=== PATIENT | male | born 1990 | race Caucasian/White ===

== ENCOUNTER 2024-10-22 12:25 | Emergency (ER) | payer BC, SELFPAY ==
--- OUTSIDE RECORDS SUMMARY | 2024-10-22 12:27 | XMS_ITS | Continuity of Care Document ---
Author Organization [facility] Address [address] [place] [address] Phone Care Team Providers Care Outside Installer Apprentice Name Role Phone Zafar Tran MD Unavailable Unavailable Procedures Procedure Date ELECTROCARDIOGRAM REPORT Advance Directives Directive Yes / No Effective Date File Name No Information Encounters Encounter Description Practice Location Reason(s) For Visit Diagnoses Date Provider Providers Copied on Encounter [facility], [address] [place] [address], [facility], tel:[phone] [facility] No Information Marc Puente. [address] [place] [address], . tel:[phone] Referring Provider: Rowena Coleman, [address], [place], [facility]. tel:[phone] Family History Family Member Type Diagnosis Age At Onset No Information Payers Payer name Insurance type Covered republican ID Authoraca tijensen(s) [facility] [id number] Social History Type Description Quantity Date Captured Comments Sex Male Smoking Status No Information Chief Complaint And Reason For Visit No Information Reason For Referral Reason For Referral No Information History Of Present Illness Encounter Date Complaint History Of Prese nt Illness No Information Functional Status Date Functional Assessmen t No Information Instructions Date Instruction Additional Infor mation No Information Assessments Type Assessment Date No Information Patient Care Teams Name Effective Dates (start - stop) Status Members No Information
[2024-10-22 12:37] VITALS: BP 172/97; PULSE 117; RESP 13; O2SAT 97
--- OUTSIDE RECORDS SUMMARY | 2024-10-22 12:57 | XMS_ITS | Continuity of Care Document ---
Author Organization [facility] Address [address] [place] [address] Phone Care Team Providers Care Cold Rolling Machine Setter Name Role Phone Zafar Tran MD Unavailable Unavailable Procedures Procedure Date ELECTROCARDIOGRAM REPORT Advance Directives Directive Yes / No Effective Date File Name No Information Encounters Encounter Description Practice Location Reason(s) For Visit Diagnoses Date Provider Providers Copied on Encounter [facility], [address] [place] [address], [place], tel:[phone] [facility] No Information Marc Puente. [address] [place] [address], . tel:[phone] Referring Provider: Rowena Coleman, [address], [place], [place]. tel:[phone] Family History Family Member Type Diagnosis Age At Onset No Information Payers Payer name Insurance type Covered green party ID Authoraca tijensen(s) [facility] [id number] Social History Type Description Quantity Date Captured [...]
[2024-10-22 14:00] LABS: Hematocrit 44.4 % (42.0-52.0); Hemoglobin 15.4 g/dL (14.0-18.0); Immature Granulocyte Percent A 0.2 % (0-0.5); Lymphocytes Absolute Auto 1.83 K/mm3 (0.9-3.2); Mean Corpuscular HGB Conc 34.7 g/dl (32-36); Mean Corpuscular Hemoglobin 30.3 pg (26-34); Mean Corpuscular Volume 87.4 fl (80-100); Nucleated Red Blood Cells Absolute Auto 0.000 K/mm3 (0.0-0.012); Nucleated Red Blood Cells Perc 0.0 % (0.0-0.2); Platelet Count Result 167 k/mm3 (150-375); Red Blood Count 5.08 M/mm3 (4.6-6.20); White Blood Count 5.3 K/mm3 (4.5-10.0)
[2024-10-22 14:17] LABS: Alanine Aminotransferase 160 U/L (6-50); Albumin Level 5.0 g/dL (3.5-5.1); Alkaline Phosphatase 70 U/L (38-126); Anion Gap 15 mmol/L (4-12); Aspartate Amino Transferase 107 U/L (17-59); Bilirubin,Total 0.9 mg/dL (0.2-1.3); Blood Urea Nitrogen 10 mg/dL (9-20); Calcium 9.4 mg/dL (8.4-10.2); Carbon Dioxide 24 mmol/L (22-30); Chloride 101 mmol/L (98-107); Estimated Glomerular Filt Rate > 60; Glucose 117 mg/dL (65-110); Potassium 3.8 mmol/L (3.4-5.0); Sodium 140 mmol/L (137-145); Total Protein 8.0 g/dL (6.3-8.2)
[2024-10-22] MEDS: SODIUM CHLORIDE 0.9% IV 1,000 ML 999 ML IV CONT (14:22)
[2024-10-22] MEDS: diazePAM INJ (*CRX) 10 MG/2 ML SYRINGE 5 MG IV PUSH (14:22)
--- NOTE | 2024-10-22 14:53 | ED.GENADULT ---
HPI - General Adult General Chief complaint: Alcohol Stated complaint: etoh withdrawls Time Seen by Provider: 10/22/24 12:50 History of Present Illness HPI narrative: Patient is a 34-year-old male who presents ER with concerns for alcohol withdrawal. Reports when he stops drinking he gets anxious and sweaty has to drink more alcohol to make his symptoms go away. He has been able to stop prolonged periods in the past. Currently drinking 1-2 balls of hard liquor during day. Reports he also has symptoms when he runs out of his Vyvanse and begins have similar-type symptoms and will have to take a drink to curb the discomfort and anxiousness. Has not spoken his PCP about this. He does report that he has been a a in the past which was somewhat helpful but a bit overwhelming. He has been open with his about his issues and she brought him here to get help. No history of alcohol withdrawal seizure. Related Data Allergies Allergy/AdvReac Type Severity Reaction Status Date / Time No Known Allergies Allergy Verified 06/19/24 11:21 Review of Systems Review of Systems: All systems reviewed & are unremarkable except as noted in HPI and below Constitutional: Constitutional: Reports no additional constitutional complaints Cardiovascular: Cardiovascular: Reports no additional cardiovascular complaints Respiratory: Respiratory: Reports no additional respiratory complaints Gastrointestinal: Gastrointestinal: Reports no additional gastrointestinal complaints Neurologic: Reports system reviewed and no additional complaints, except as documented Psychiatric: Psychiatric: Reports no additional psychiatric complaints PMFSH Past Medical History Medical History (Updated 10/22/24 @ 15:09 by Nicola Andrade MD) Type 1 diabetes ADHD Social History Social History Smoking status: Never smoker Exam Narrative: GENERAL: Well-appearing, well-nourished, and in no acute distress. HEAD: Normocephalic, atraumatic. EYES: PERRL and EOMI. ENT: Mucous membranes moist. CHEST: Clear to auscultation. No respiratory distress. HEART: Tachycardic and regular. Normal peripheral pulses. ABDOMEN: Soft, nontender, nondistended. EXTREMITIES: Normal range of motion. No edema. SKIN: Warm, dry, no rash. NEURO: Alert and oriented x3. PSYCH: Normal mood and affect. Course Course Emergency Course: Patient resting comfortably. Received some Valium. The patient reassurance. Suspect he could have success in quitting alcohol as he seems motivated and has good insight into his issues. Vital Signs Vital signs: Vital Signs Pulse Rate 117 H 10/22/24 12:37 Respiratory Rate 13 10/22/24 12:37 Blood Pressure 172/97 H 10/22/24 12:37 Pulse Oximetry 97 10/22/24 12:37 Oxygen Delivery Room Air 10/22/24 12:37 Pulse Rate 117 H 10/22/24 12:37 Respiratory Rate 13 10/22/24 12:37 Blood Pressure 172/97 H 10/22/24 12:37 Pulse Oximetry 97 10/22/24 12:37 Oxygen Delivery Room Air 10/22/24 12:37 Medical Decision Making Vital Signs Vital Signs: Vital Signs Pulse Rate 117 H 10/22/24 12:37 Respiratory Rate 13 10/22/24 12:37 Blood Pressure 172/97 H 10/22/24 12:37 Pulse Oximetry 97 10/22/24 12:37 Oxygen Delivery Room Air 10/22/24 12:37 Pulse Rate 117 H 10/22/24 12:37 Respiratory Rate 13 10/22/24 12:37 Blood Pressure 172/97 H 10/22/24 12:37 Pulse Oximetry 97 10/22/24 12:37 Oxygen Delivery Room Air 10/22/24 12:37 Lab Data 10/22/24 13:51 10/22/24 13:51 Labs: Lab Results 10/22/24 Range/Units 13:51 WBC 5.3 (4.5-10.0) K/mm3 RBC 5.08 (4.6-6.20) M/mm3 Hgb 15.4 (14.0-18.0) g/dL Hct 44.4 (42.0-52.0) % MCV 87.4 (80-100) fl MCH 30.3 (26-34) pg MCHC 34.7 (32-36) g/dl RDW 12.9 (11.5-14.5) % Plt Count 167 (150-375) k/mm3 MPV 9.3 (7.4-10.4) fl Immature Gran % (Auto) 0.2 (0-0.5) % Neut % (Auto) 55.2 (45.5-73.1) % Lymph % (Auto) 34.3 (18.3-44.2) % [place] % (Auto) 6.6 (2.6-8.5) % Eos % (Auto) 2.8 (0-4.4) % Baso % (Auto) 0.9 (0.2-1.2) % Lymph # (Auto) 1.83 (0.9-3.2) K/mm3 [place] # (Auto) 0.4 (0.1-0.6) K/mm3 Eos # (Auto) 0.2 (0-0.3) K/mm3 Baso # (Auto) 0.1 (0.0-0.1) K/mm3 Abs Immat Gran (auto) 0.01 (0.00-0.031) K/mm3 Absolute Neuts (auto) 3.0 (1.3-6.7) K/mm3 Absolute Nucleated RBC 0.000 (0.0-0.012) K/mm3 Nucleated RBC % 0.0 (0.0-0.2) % Sodium 140 (137-145) mmol/L Potassium 3.8 (3.4-5.0) mmol/L Chloride 101 (98-107) mmol/L Carbon Dioxide 24 (22-30) mmol/L Anion Gap 15 H (4-12) mmol/L BUN 10 (9-20) mg/dL Creatinine 0.67 L (0.7-1.3) mg/dL Estim Creat Clear Calc Not Reportable Estimated GFR > 60 (59 - ) Glucose 117 H (65-110) mg/dL Calcium 9.4 (8.4-10.2) mg/dL Total Bilirubin 0.9 (0.2-1.3) mg/dL AST 107 H (17-59) U/L ALT 160 H (6-50) U/L Alkaline Phosphatase 70 (38-126) U/L Total Protein 8.0 (6.3-8.2) g/dL Albumin 5.0 (3.5-5.1) g/dL Ethyl Alcohol 164 (<10) mg/dL Discharge Plan Discharge Clinical Impression: Alcohol withdrawal syndrome Patient Disposition: Home Condition: Stable Instructions: Alcohol Withdrawal (ED) Additional Instructions: Is recommend that you follow-up with your primary care doctor to discuss long-term treatment and alcohol abuse alcohol withdrawal. It is also recommended that you attend alcoholics anonymous meetings to help with your addiction. The best way to began controlling your issues is to be open and honest with the people closest to you, including your and direct family, as well as your primary care physician. Patient Language: Citizen [place] Prescriptions: New chlordiazepoxide HCl 25 mg capsule 25 mg PO TID PRN (Reason: alcohol withdrawal) Qty: 10 0RF No Action lisdexamfetamine [Vyvanse] 50 mg capsule 50 mg PO DAILY Qty: 30 0RF Follow-up/Referrals: Myron Marquez DO [Primary Care Provider] - 1 Week
== END 2024-10-22 15:44 | disposition home or self-care (01) ==
PROVIDERS: Emergency Provider Emergency Medicine; PCP Family Medicine
DX: F10.139 Alcohol abuse with withdrawal, unspecified (principal); Y90.6 Blood alcohol level of 120-199 mg/100 ml; E10.9 Type 1 diabetes mellitus without complications; F90.9 Attention-deficit hyperactivity disorder, unspecified type
CPT/HCPCS: 36415; 80053; 82077; 85025; 96361; 96374; 99284; J3360; J7030

== ENCOUNTER 2024-11-25 13:02 | Emergency (ER) | payer BC, SELFPAY ==
[2024-11-25] VITALS (9 sets, daily range): BP systolic 123–158; BP diastolic 79–95; PULSE 94–115; RESP 15–21; TEMP 36.8; O2SAT 96–100
[2024-11-25] MEDS: SODIUM CHLORIDE 0.9% IV 1,000 ML 999 ML IV CONT (16:42)
[2024-11-25] MEDS: diazePAM INJ (*CRX) 10 MG/2 ML SYRINGE 5 MG IV PUSH (16:44)
[2024-11-25 16:57] LABS: Hematocrit 45.8 % (42.0-52.0); Hemoglobin 16.0 g/dL (14.0-18.0); Immature Granulocyte Percent A 0.4 % (0-0.5); Lymphocytes Absolute Auto 1.97 K/mm3 (0.9-3.2); Mean Corpuscular HGB Conc 34.9 g/dl (32-36); Mean Corpuscular Hemoglobin 30.7 pg (26-34); Mean Corpuscular Volume 87.9 fl (80-100); Nucleated Red Blood Cells Absolute Auto 0.000 K/mm3 (0.0-0.012); Nucleated Red Blood Cells Perc 0.0 % (0.0-0.2); Platelet Count Result 151 k/mm3 (150-375); Red Blood Count 5.21 M/mm3 (4.6-6.20); White Blood Count 7.8 K/mm3 (4.5-10.0)
[2024-11-25 17:05] LABS: Non Pathogenic Casts 0-2
[2024-11-25 17:08] LABS: INR 1.0; Prothrombin Time 13.0 Seconds (11.1-14.7)
[2024-11-25 17:09] LABS: Partial Thromboplastin Time 24.8 Seconds (22.3-36.8)
[2024-11-25 17:11] LABS: Alanine Aminotransferase 109 U/L (6-50); Albumin Level 5.0 g/dL (3.5-5.1); Alkaline Phosphatase 75 U/L (38-126); Anion Gap 10 mmol/L (4-12); Aspartate Amino Transferase 76 U/L (17-59); Bilirubin,Total 2.2 mg/dL (0.2-1.3); Blood Urea Nitrogen 14 mg/dL (9-20); Calcium 9.3 mg/dL (8.4-10.2); Carbon Dioxide 30 mmol/L (22-30); Chloride 95 mmol/L (98-107); Estimated Glomerular Filt Rate > 60; Glucose 148 mg/dL (65-110); Lipase 55 U/L (23-300); Potassium 4.0 mmol/L (3.4-5.0); Sodium 135 mmol/L (137-145); Total Protein 8.4 g/dL (6.3-8.2)
[2024-11-25 17:17] LABS: Add Urine Microscopic? YES; Appearance Urine Clear (Clear); Glucose Urine UA 1+ mg/dL (Negative); Leukocyte Esterase Ur Negative LEU/UL (Negative); Nitrate Urine Negative (Negative); Specific Grav Ur 1.040 (1.001-1.035)
[2024-11-25 17:31] LABS: Cannabinoid Screen Urine Negative (Negative)
--- NOTE | 2024-11-25 18:24 | ED_ITS ---
HPI - Alcohol General Chief Complaint: Alcohol Stated Complaint: ETOH withdrawal Time Seen by Provider: 11/25/24 16:14 Source: patient Mode of arrival: ambulatory Limitations: no limitations History of Present Illness HPI narrative: This is a 34-year-old male that presents to the emergency department for alcohol withdrawal symptoms. Reports he is a binge drinker. He has been on a binge for about the last week. After these binges he experiences withdrawal symptoms including anxiety, tremors. His last drink was last night. Presents for further management. No history of seizures. Related Data Allergies Allergy/AdvReac Type Severity Reaction Status Date / Time No Known Allergies Allergy Verified 11/20/24 12:55 Review of Systems 2 Review of Systems: All systems reviewed & are unremarkable except as noted in HPI and below PMFSH Past Medical History Medical History (Updated 11/25/24 @ 18:26 by Doris Ryder PA-C) Elevated LFTs Alcohol use disorder Type 1 diabetes ADHD Social History Social History Smoking status: Never smoker Exam 2 Narrative: GENERAL: Well-appearing, well-nourished, and in no acute distress. HEAD: Normocephalic, atraumatic. EYES: PERRLA and EOMI. ENT: Nares clear, no rhinorrhea or epistaxis. Mucous membranes moist. Oropharynx without tonsillar hypertrophy exudate or other lesions. Bilateral TMs pearly romero non-bulging NECK: Supple. No adenopathy or masses. CHEST: Clear to auscultation. No respiratory distress. No wheezes rales or rhonchi HEART: Regular rate and rhythm. No murmur heard. Normal peripheral pulses. EXTREMITIES: Normal range of motion. No edema. SKIN: Warm, dry, no rash. NEURO: No focal deficits. Alert and oriented x3. PSYCH: Normal mood and affect Course Course Emergency Course: Patient updated on his workup and agrees with plan of care Vital Signs Vital signs: Vital Signs Temperature 98.3 F 11/25/24 13:14 Pulse Rate 115 H 11/25/24 13:14 Respiratory Rate 18 11/25/24 13:14 Blood Pressure 123/79 11/25/24 13:14 Pulse Oximetry 98 11/25/24 13:14 Oxygen Delivery Room Air 11/25/24 13:14 Temperature 98.3 F 11/25/24 13:14 Pulse Rate 106 H 11/25/24 16:45 Respiratory Rate 16 11/25/24 16:45 Blood Pressure 152/93 H 11/25/24 16:45 Pulse Oximetry 99 11/25/24 16:45 Oxygen Delivery Room Air 11/25/24 13:14 MDM - Alcohol MDM Narrative Medical decision making narrative: Patient presents to the emergency department for alcohol withdrawal symptoms. Reports history of binge drinking. He has mild withdrawal symptoms after his binges. No history of previous seizures. Tachycardic upon arrival, this improved with IV fluids. Mildly hypertensive. Cbc without concerning findings. Mild transaminitis noted on metabolic panel. Evidence of dehydration in the urine. Patient hydrated with a L of IV fluids. Drug screen positive for amphetamines, patient does take ADHD medication. Also positive for benzodiazepines. He was given diazepam in the ER. Patient updated on his workup and agrees with plan of care. Will be started on Librium taper. Once again given resources. He was given warnings to return to the ER Differential Diagnosis Differential diagnosis: Likely alcohol intoxication and alcohol withdrawal syndrome Lab Data Attestation: I reviewed the patient's lab results. 11/25/24 16:50 11/25/24 16:50 Labs: Lab Results 11/25/24 11/25/24 Range/Units 16:50 16:57 WBC 7.8 (4.5-10.0) K/mm3 RBC 5.21 (4.6-6.20) M/mm3 Hgb 16.0 (14.0-18.0) g/dL Hct 45.8 (42.0-52.0) % MCV 87.9 (80-100) fl MCH 30.7 (26-34) pg MCHC 34.9 (32-36) g/dl RDW 12.6 (11.5-14.5) % Plt Count 151 (150-375) k/mm3 MPV 9.3 (7.4-10.4) fl Immature Gran % (Auto) 0.4 (0-0.5) % Neut % (Auto) 65.7 (45.5-73.1) % Lymph % (Auto) 25.4 (18.3-44.2) % [place] % (Auto) 6.1 (2.6-8.5) % Eos % (Auto) 1.5 (0-4.4) % Baso % (Auto) 0.9 (0.2-1.2) % Lymph # (Auto) 1.97 (0.9-3.2) K/mm3 [place] # (Auto) 0.5 (0.1-0.6) K/mm3 Eos # (Auto) 0.1 (0-0.3) K/mm3 Baso # (Auto) 0.1 (0.0-0.1) K/mm3 Abs Immat Gran (auto) 0.03 (0.00-0.031) K/mm3 Absolute Neuts (auto) 5.1 (1.3-6.7) K/mm3 Absolute Nucleated RBC 0.000 (0.0-0.012) K/mm3 Nucleated RBC % 0.0 (0.0-0.2) % PT 13.0 (11.1-14.7) Seconds INR 1.0 APTT 24.8 (22.3-36.8) Seconds Sodium 135 L (137-145) mmol/L Potassium 4.0 (3.4-5.0) mmol/L Chloride 95 L (98-107) mmol/L Carbon Dioxide 30 (22-30) mmol/L Anion Gap 10 (4-12) mmol/L BUN 14 (9-20) mg/dL Creatinine 0.70 (0.7-1.3) mg/dL Estim Creat Clear Calc Not Reportable Estimated GFR > 60 (59 - ) Glucose 148 H (65-110) mg/dL Calcium 9.3 (8.4-10.2) mg/dL Total Bilirubin 2.2 H (0.2-1.3) mg/dL AST 76 H (17-59) U/L ALT 109 H (6-50) U/L Alkaline Phosphatase 75 (38-126) U/L Total Protein 8.4 H (6.3-8.2) g/dL Albumin 5.0 (3.5-5.1) g/dL Lipase 55 (23-300) U/L Urine Color Light sahara (Yellow) Urine Appearance Clear (Clear) Urine pH 6.0 (5.0-9.0) Ur Specific [place] 1.040 H (1.001-1.035) Urine Protein 2+ H (Negative) mg/dL Urine Glucose (UA) 1+ H (Negative) mg/dL Urine Ketones 4+ H (Negative) mg/dL Ur Blood (Man) Negative (Negative) Urine Nitrate Negative (Negative) Urine Bilirubin 1+ H (Negative) Urine Urobilinogen 1.0 (<2.0) mg/dL Leukocyte Esterase Rfl Negative (Negative) KIANNA/UL Urine RBC 0-2 (0-2) /hpf Urine WBC 0-5 (0-3) /hpf Ur Squamous Epith Cells None seen (Few) /hpf Urine Bacteria None seen /hpf Urine Casts 0-2 Urine Opiates Screen Negative (Negative) Urine Methadone Screen Negative (Negative) Ur Barbiturates Screen Negative (Negative) Ur Phencyclidine Scrn Negative (Negative) Ur Amphetamine Screen Positive A (Negative) U Benzodiazepines Scrn Positive A (Negative) Urine Cocaine Screen Negative (Negative) U Cannabinoids Screen Negative (Negative) Critical Care Time Critical Care Time Critical Care Time: No Discharge Plan Discharge Clinical Impression: Alcohol withdrawal syndrome Qualifiers: Complication of substance-induced condition: uncomplicated Qualified Code(s): F 10.930 - Alcohol use, unspecified with withdrawal, uncomplicated Patient Disposition: Home Condition: Improved Instructions: Abuse of Alcohol (ED), Alcohol Withdrawal (ED) Additional Instructions: Return to the emergency department if you experience fever, chest pain, shortness of breath, abdominal pain with nausea and vomiting, weakness, numbness, or any other symptoms that are concerning to you. Take Chlordiazepoxide as needed for withdrawal symptoms Follow up with your primary care doctor and resources provided Patient Language: [place] Prescriptions: New chlordiazepoxide HCl 25 mg capsule 50 mg PO Q4-6H PRN (Reason: alcohol withdrawal) Qty: 20 0RF Rx Instructions: Day 1: 50mg every 4-6 hours. Day 2: 50mg every 8-12 hours. Day 3: 50mg every 12-24 hours. Day 4: 25mg every 12-24 hours, then discontinue No Action lisdexamfetamine [Vyvanse] 50 mg capsule 50 mg PO DAILY Qty: 30 0RF Follow-up/Referrals: UNKNOWN,DOCTOR [Primary Care Provider]
== END 2024-11-25 18:40 | disposition home or self-care (01) ==
PROVIDERS: Emergency Provider Physician Assistant
DX: F10.230 Alcohol dependence with withdrawal, uncomplicated (principal); Y90.0 Blood alcohol level of less than 20 mg/100 ml; E10.9 Type 1 diabetes mellitus without complications; F90.9 Attention-deficit hyperactivity disorder, unspecified type; Z79.899 Other long term (current) drug therapy
CPT/HCPCS: 36415; 80053; 80307; 81001; 82077; 83690; 85025; 85610; 85730; 96361; 96374; 99284; J3360; J7030